=== PATIENT | male | born 1975 | race Caucasian/White ===

== ENCOUNTER 2017-01-04 15:20 | Emergency (ER) | payer BC, OTHER ==
[2017-01-04] MEDS ORDERED: HYDROCODONE/ACETAMINOPHEN 5-325 MG TABLET PO ONE (16:14)
[2017-01-04] MEDS ORDERED: DIAZEPAM 5 MG TABLET PO ONE (16:14)
--- NOTE | 2017-01-04 16:20 | ER Document Report ---
ED Fall - General Chief Complaint: Fall Injury Stated Complaint: FALL,BACK HURTS Time Seen by Provider: 01/04/17 16:05 Mode of Arrival: Ambulatory Information source: Patient TRAVEL OUTSIDE OF THE [place] IN LAST 30 DAYS: No - HPI Occurred: Just prior to arrival Where: Work Context: Lost balance Associated symptoms: None Location of injury/pain: Back, Hand Quality of pain: Achy Severity: Moderate Notes: Patient arrives with complaints of back pain and left middle finger pain after falling. 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 States that his stilt got caught in a bundle causing him to fall directly backwards onto his buttocks. He now has pain in his upper and lower back. He also complains of pain to the left middle finger. Patient denies hitting his head. Denies loss of consciousness. Is not on blood thinners. He denies any chest or abdominal pain. He denies any nausea or vomiting. He denies any bowel or bladder dysfunction. He denies any numbness, [place], weakness down the legs. He denies any other injuries or any other complaints at this time. - Related data Allergies/Adverse Reactions: No Known Allergies Allergy (Verified 01/04/17 15:38) Past Medical History - Social History Smoking Status: Unknown if Ever Smoked Family History: Reviewed & Not Pertinent - Past Medical History Cardiac Medical History: Reports: Hx Hypertension Renal/ Medical History: Reports: Hx Kidney Stones. Denies: Hx Peritoneal Dialysis GI Medical History: Reports: Hx Gastroesophageal Reflux Disease Past Surgical History: Reports: Hx Orthopedic Surgery, Hx Testicular Surgery Review of Systems - Review of Systems -: Yes All other systems reviewed and negative Physical Exam - Vital signs Vitals: Temp Pulse Resp BP Pulse Ox 97.9 F 57 L 20 135/86 H 99 01/04/17 15:36 01/04/17 15:36 01/04/17 15:36 01/04/17 15:36 01/04/17 15:36 - Notes Notes: GENERAL: alert, cooperative, nontoxic, no distress. HEAD: normocephalic, atraumatic EYES: conjunctiva pink without discharge, no external redness or swelling. EARS: no external swelling, no external redness NOSE: atraumatic, no external swelling MOUTH/THROAT: mucous membranes moist and pink, posterior pharynx without erythema, swelling, exudate. No trismus or drooling. NECK: soft, supple, full range of motion, no meningismus. No midline tenderness step-offs or crepitus. CHEST: no distress, lungs clear and equal throughout. No wheezing, rales, rhonchi. CARDIAC: regular rate and rhythm, no murmur, normal capillary refill, normal pulses. No peripheral edema noted. ABDOMEN: soft, nontender, no pusatile mass. BACK: Mild tenderness to palpation of the entire thoracic and lumbar midline spine. No obvious step-offs or crepitus. Tenderness along the bilateral paraspinal muscles as well. EXTREMITIES: full range of motion of all extremities. No redness, no swelling. Tenderness to palpation of the PIP of the left middle finger. No swelling. No redness. Skin is intact. Full flexion and extension. Normal cap refill and sensation distally. Normal pulses. NEURO: alert and oriented -3, no focal deficits, full range of motion of all extremities. 5 out of 5 flexion and extension of the lower extremities bilaterally. Patellar and Achilles deep tendon reflexes are +2 bilaterally. Normal sensation with no saddle anesthesia. Cranial nerves II through XII are grossly intact. PYSCH: appropriate mood, affect. Patient is cooperative. SKIN: pink, warm, dry, no rash. Course - Re-evaluation Re-evalutation: 01/04/17 18:15 Patient updated on results of plain x-ray showing L1 compression fracture. The patient is feeling better after pain medication and remains stable at this time. CT of the lumbar spine has been ordered to further evaluate the compression fracture. Patient updated at this time. 01/04/17 19:03 Patient is nontoxic appearing with stable vitals. Patient is noted to have an L1 compression fracture on his plain x-rays. CT shows compression fracture L1 with no retropulsion or canal involvement. Patient has a normal neurological exam with no sign of cauda equina or epidural abscess/bleed. Patient is resting comfortably at this time. He will be discharged home with a 6 pack of Firebaugh home pack and a prescription for Firebaugh and Phenergan. He is referred to [facility] for follow-up. He was instructed to follow-up with him at the next available appointment. Follow-up sooner for increased pain, fever, difficulty controlling bowels or bladder, or for any further concerns. The patient is noted to have elevated blood pressure during today's emergency department visit. The patient was informed of this finding. The patient was instructed that this may be related to pre-hypertension and requires further evaluation with a primary care provider. The patient has no hypertensive symptoms at this time. The patient's emergency department workup and current diagnosis were explained to the patient and or family. Follow-up instructions were provided. Medications if prescribed were discussed. Instructions for when to return to the emergency department including specific worrisome symptoms were discussed with the patient and/or family. - Vital Signs Vital signs: Temp Pulse Resp BP Pulse Ox 97.9 F 57 L 20 135/86 H 99 01/04/17 15:36 01/04/17 15:36 01/04/17 15:36 01/04/17 15:36 01/04/17 15:36 - Diagnostic Test Radiology reviewed: Image reviewed, Reports reviewed - X-rays of the thoracic and lumbar spine show L1 compression fracture. Left hand x-rays are negative. CT of the lumbar spine shows L1 compression fracture with no canal involvement. Discharge - Discharge Clinical Impression: Compression fracture of L1 lumbar vertebra Qualifiers: Encounter type: initial encounter Fracture type: closed Qualified Code(s): S32.010A - Wedge compression fracture of first lumbar vertebra, initial encounter for closed fracture Condition: Stable Disposition: HOME, SELF-CARE Instructions: Compression Fracture of the Spine ([facility]) Additional Instructions: Take medications as prescribed. Follow-up with [facility] at the next available appointment. Follow-up sooner for increased pain, fever, numbness, tingling, weakness, difficulty controlling bowels or bladder, or any further concerns. Your blood pressure was elevated during today's visit. Have this rechecked with your doctor. The patient's emergency department workup and current diagnosis were explained to the patient and or family. Follow-up instructions were provided. Medications if prescribed were discussed. Instructions for when to return to the emergency department including specific worrisome symptoms were discussed with the patient and/or family. Prescriptions: Hydrocodone/Acetaminophen [Firebaugh 5-325 mg Tablet] 2 tab PO Q6H PRN #30 tab PRN Reason: Promethazine HCl [Phenergan 25 mg Tablet] 1 - 2 tab PO Q6H PRN #15 tablet PRN Reason: Forms: Return to Work Referrals: CATHERINE UGERRA MD [Primary Care Provider] - Follow up as needed LYSSA RAMOS MD [ASSOCIATE] - Follow up as needed
[2017-01-04] MEDS ORDERED: KETOROLAC TROMETHAMINE 60 MG/2 ML SDV IM ONE (16:21)
--- NOTE | 2017-01-04 17:37 | RADIOLOGY REPORT (SQ) ---
EXAM DESCRIPTION: HAND LEFT 3 VIEWS COMPLETED DATE/TIME: 01/04/2017 5:22 pm REASON FOR STUDY: FALL, INJURY COMPARISON: None. EXAM PARAMETERS: NUMBER OF VIEWS: Three views. TECHNIQUE: AP, lateral and oblique radiographic images acquired of the left hand. LIMITATIONS: None. FINDINGS: MINERALIZATION: Normal. BONES: No acute fracture or dislocation. No worrisome bone lesions. JOINTS: No effusions. SOFT TISSUES: No soft tissue swelling. No foreign body. OTHER: No other significant finding. IMPRESSION: NEGATIVE STUDY OF THE LEFT HAND. NO RADIOGRAPHIC EVIDENCE OF ACUTE INJURY. TECHNICAL DOCUMENTATION: JOB ID: [id number] [employer]- All Rights Reserved
--- NOTE | 2017-01-04 17:40 | RADIOLOGY REPORT (SQ) ---
EXAM DESCRIPTION: L SPINE WHOLE COMPLETED DATE/TIME: 01/04/2017 5:22 pm REASON FOR STUDY: FALL, INJURY COMPARISON: None. NUMBER OF VIEWS: Five views including obliques. TECHNIQUE: AP, lateral, oblique, and sacral radiographic images acquired of the lumbar spine. LIMITATIONS: None. FINDINGS: MINERALIZATION: Normal. SEGMENTATION: Normal. No transitional anatomy. ALIGNMENT: Normal. VERTEBRAE: Under wedge compression changes are present at L1 with loss of about 25% of vertebral body height. This is not present on a CT renal stone dated 10/03/2013. DISCS: Preserved height. No significant osteophytes or end plate irregularity. POSTERIOR ELEMENTS: Pedicles and facets are intact. No pars defect or posterior arch defects. HARDWARE: None in the spine. PARASPINAL SOFT TISSUES: Normal. PELVIS: Intact as visualized. No fractures or worrisome bone lesions. SI joints intact. OTHER: No other significant finding. IMPRESSION: L1 compression changes that appear new. TECHNICAL DOCUMENTATION: JOB ID: [id number] [employer]- All Rights Reserved
--- NOTE | 2017-01-04 17:41 | RADIOLOGY REPORT (SQ) ---
EXAM DESCRIPTION: T SPINE AP/LAT COMPLETED DATE/TIME: 01/04/2017 5:22 pm REASON FOR STUDY: FALL, INJURY COMPARISON: None. NUMBER OF VIEWS: Two views. TECHNIQUE: AP and lateral radiographic images acquired of the thoracic spine. LIMITATIONS: None. FINDINGS: MINERALIZATION: Normal. ALIGNMENT: Normal. No scoliosis. VERTEBRAE: Compression changes at L1 noted on lumbar spine series are once. No thoracic compression changes noted. DISCS: No significant loss of height or significant narrowing. No large osteophytes. HARDWARE: None in the spine. MEDIASTINUM AND SOFT TISSUES: Normal heart size and aortic contour. No soft tissue abnormality. VISUALIZED LUNG PEREZ: Clear. OTHER: No other significant finding. IMPRESSION: Acute L1 compression changes as described. TECHNICAL DOCUMENTATION: JOB ID: [id number] [employer]- All Rights Reserved
--- NOTE | 2017-01-04 18:33 | RADIOLOGY REPORT (SQ) ---
EXAM DESCRIPTION: CT LUMBAR SPINE WITHOUT COMPLETED DATE/TIME: 01/04/2017 6:19 pm REASON FOR STUDY: FALL COMPARISON: None. TECHNIQUE: Axial images acquired through the lumbar spine without intravenous contrast. Images revi ewed with lung, soft tissue and bone windows. Reconstructed coronal and sagittal MPR images reviewed . All images stored on PACS. All CT scanners at this facility use dose modulation, iterative reconstruction, and/or weight based d osing when appropriate to reduce radiation dose to as low as reasonably achievable (ALARA). [facility]: Dose Right [facility]: CareDose [facility]: Dose Right [facility]: Teradose 4D [facility]: [employer] RADIATION DOSE: 30mGy. LIMITATIONS: None. FINDINGS: SEGMENTATION: Normal. No transitional anatomy. ALIGNMENT: Normal. VERTEBRAL BODIES: Superior endplate compression changes are present at L1. These findings are acute. The dorsal aspect of the vertebral body is relatively well maintained. There is no retropulsion rachna ne fragments into the spinal canal. DISCS: No significant protrusions. Study limited by lack of intrathecal contrast. PEDICLES, TRANSVERSE PROCESSES: No fractures. No dislocation. No acute findings. FACETS, POSTERIOR ELEMENTS: No fractures. No dislocation. No spinal stenosis. HARDWARE: None in the spine. VISUALIZED RIBS: No fractures. SOFT TISSUES: No significant or acute finding in adjacent soft tissues. OTHER: No other significant finding. IMPRESSION: Acute superior endplate compression changes at L1 with no compromise of the spinal canal . TECHNICAL DOCUMENTATION: JOB ID: [id number] Quality ID # [id number]: Final reports with documentation of one or more dose reduction techniques (e.g., Au tomated exposure control, adjustment of the mA and/or kV according to patient size, use of iterative reconstruction technique) 2010 [employer]- All Rights Reserved
[2017-01-04] MEDS ORDERED: HYDROCODONE/ACETAMINOPHEN 5-325 MG (6 TAB/ER DISP) PO PRN (19:03)
[2017-01-04 19:28] VITALS: BP 137/92
== END 2017-01-04 19:28 | disposition home or self-care (01) ==
LOC: ER 15:20
DX: S32.010A Wedge compression fracture of first lumbar vertebra, initial encounter for closed fracture (principal); M79.645 Pain in left finger(s); W17.89XA Other fall from one level to another, initial encounter; Y99.0 Civilian activity done for income or pay; M54.89 Other dorsalgia; I10 Essential (primary) hypertension
CPT/HCPCS: 99284; 96372; 73130; 72110; 72070; 72131; J1885

== ENCOUNTER → 2018-07-06 | Outpatient (CLI) | payer MEDICAID ==
[2018-07-06 13:30] LABS: CHLAM PCR NOT DETECTED (NOT DETECT); GON PCR NOT DETECTED (NOT DETECT)
[2018-07-08 01:36] LABS: HSV I DNA Negative (Negative)
[2018-07-10 09:43] LABS: HSV II DNA Negative (Negative)
== END ==
LOC: OD 11:11
PROVIDERS: ATTEND Nurse Practitioner Acute Care
DX: N48.89 Other specified disorders of penis (principal); R36.9 Urethral discharge, unspecified; Z20.828 Contact with and (suspected) exposure to other viral communicable diseases
CPT/HCPCS: 36415; 87491; 87529; 87591